=== PATIENT | female | born 1995 | race Caucasian/White ===

== ENCOUNTER 2017-12-29 11:23 | Outpatient (CLI) | payer OTHER, SELFPAY ==
[2017-12-29 11:46] VITALS: BMI 33.1
[2017-12-29 12:13] LABS: ROM Internal Control Test YES-OK TO RESULT pt. (Internal QC); ROM Patient Test Negative (Negative)
--- NOTE | 2017-12-30 07:00 | OB.TRI.NOTE ---
History of Present Illness Date of Service: 12/29/17 Was patient seen by the physician?: No Reason For Visit: RULE OUT LABOR Date of Service: 12/29/17 Final VLADIMIR: 01/13/18 Final VLADIMIR Source: US <20 weeks Gestational age: 38 Weeks and 0 Days History of Present Illness: C/O possible SROM. Home Medications Medication Instructions Recorded Vits [Prenatabs FA] 1 tablet PO DAILY 12/29/17 Allergies No Known Allergies Allergy (Verified 12/29/17 11:47) Physical Exam General: Alert, Oriented x3, Cooperative, No apparent distress Cardiovascular: Regular rate, Regular Rhythm Lungs: Clear to auscultation, Normal air movement Abdomen: Soft, Non Tender, Non-Distended, Gravid, Appropriate for Gestational Age Extremities:: No edema Estimated gestational size: Appropriate for gestational size Presentation: Cephalic Cervix Dilation (cm): 2 Station: -3 Effacement (%): 0 NST - FHR Rate Baby A Baseline: 150s Variability:: Moderate Accelerations:: 15 x 15 Decelerations:: None NST Reactive:: Yes, Appropriate for gestational age FHR Category:: Category I Uterine Activity:: Rare contraction Impression/Plan ROM+ testing negative. Reassuring FHR tracing. Not in active labor.
== END 2017-12-29 12:45 | disposition home or self-care (01) ==
LOC: WPOUT 11:31 → WP 11:33
PROVIDERS: Visit Provider Obstetrics & Gynecology
DX: Z34.93 Encounter for supervision of normal pregnancy, unspecified, third trimester (principal); Z3A.38 38 weeks gestation of pregnancy
CPT/HCPCS: 59025; 59050; 84112; 99218; G0378

== ENCOUNTER 2018-01-05 20:25 | Outpatient (CLI) | payer OTHER, SELFPAY ==
[2018-01-05 20:56] VITALS: BMI 34.2
[2018-01-05 21:48] LABS: ROM Internal Control Test YES-OK TO RESULT pt. (Internal QC); ROM Patient Test Negative (Negative)
--- NOTE | 2018-01-06 08:32 | OB.TRI.HP_ITS ---
History of Present Illness Date of Service: 01/05/18 Was patient seen by the physician?: Yes Reason For Visit: R/O LABOR Date of Service: 01/05/18 Final VLADIMIR: 01/12/18 Gestational age: 39 Weeks and 0 Days History of Present Illness: 22 yo female presents with irreg UCs since AM date of her presentation. Also concerned due to wt gain and intermittent KEYES. Re cramping: did have intercourse night prior to visit . LIves in [place] and hoping for induction. C/O possible ROM at 0945 am also. 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 Home Medications Medication Instructions Recorded Vits [Prenatabs FA] 1 tablet PO DAILY 12/29/17 Allergies No Known Allergies Allergy (Verified 12/29/17 11:47) Physical Exam Vitals: 134/85, 122/75, 128/77, 130/73 General: Alert, Oriented x3, Cooperative, No apparent distress Abdomen: Soft, Gravid NST - FHR Rate Baby A Baseline: 120-130s with accels to 160s- 170s Variability:: Moderate Accelerations:: 15 x 15 Decelerations:: None NST Reactive:: Yes, Appropriate for gestational age FHR Category:: Category I Uterine Activity:: Irritability, with irregular UCs. Impression/Plan 39 wk female. Reactive NST False labor BP wnl No reason to induce and advised induction by 41 wk if primip. Keep ofc appt as scheduled with Dr. Turner for further discussion of all Return to hospital if inc s/sx of labor.
== END 2018-01-05 23:10 | disposition home or self-care (01) ==
LOC: WPOUT 20:43 → WP 01-07 11:05
PROVIDERS: Visit Provider Obstetrics & Gynecology
DX: O47.1 False labor at or after 37 completed weeks of gestation (principal); Z3A.39 39 weeks gestation of pregnancy
CPT/HCPCS: 59025; 59050; 84112; 99218; G0378

== ENCOUNTER 2018-01-09 00:30 | Inpatient (IN) | payer OTHER, MEDICAID, SELFPAY ==
[2018-01-09] MEDS: Lactated Ringers 1,000 ML 50 ML IV ×3 (01:00→06:52)
[2018-01-09 01:13] VITALS: BMI 33.7
[2018-01-09 01:28] LABS: Hematocrit 35.3 % (37-47); Hemoglobin 11.6 g/dl (12.0-15.0); Mean Corp Hgb Conc 32.9 g/gl (32-36); Mean Corpuscular Hgb 27.6 pg (27.0-32.0); Mean Platelet Vol. 10.7 fl (6.2-12.0); Platelet Count 239 K/mm3 (150-450); RBC Distribution Width CV 15.3 % (11.6-14.6); RBC Distribution Width SD 46.6 fl (35.1-43.9); White Blood Count 12.2 K/mm3 (4.4-11.0)
[2018-01-09 01:30] LABS: Scan Indicated on CBC? Y/N NO
[2018-01-09] MEDS: fentaNYL-bupivacaine (epidural) 100 ML BAG EPIDURAL ×3 (02:43→11:34)
[2018-01-09] MEDS: Oxytocin 30 units/NS 500 ml 30 UNITS/500 ML IV.SOLN IV (08:00)
[2018-01-09] MEDS: Oxytocin 30 units/NS 500 ml 30 UNITS/500 ML IV.SOLN 334 UNITS IV (15:00)
--- NOTE | 2018-01-09 15:14 | PCM.OB.VAG ---
Vaginal Delivery Maternal Presentation: Active Labor, Spontaneous Rupture of Membranes Amniotic Membrane Rupture Type: Spontaneous at home Amniotic Fluid Description: Clear Final VLADIMIR: 01/13/18 Final VLADIMIR Source: US <20 weeks Gestational age: 39 Weeks and 3 Days Date of Procedure: 01/09/18 Pre-Operative Diagnosis: IUP Post-Operative Diagnosis: IUP Surgery/ Procedure Performed: Spontaneous Vaginal Delivery Type of Anesthesia: Epidural Description of Procedure: Spontaneous vaginal delivery of a viable female with Apgars of 8/9 with a three-vessel cord which was normal and cord around the neck ?1 loose; first-degree episiotomy. No laceration. Repaired with 3-0 Rapide suture under epidural. Sponge counts okay. Delivery physician: Juan M Turner MD. Presentation: Vertex Placental Delivery Description: Spontaneous Placenta Disposition: [facility] Cord Vessel Description: 3 Vessels Cord Entanglement: Around neck x 1, loose Estimated Blood Loss: 250 cc A gender: Female (1 minute): 8 (5 minute): 9 Episiotomy Description: Midline, 1st degree Laceration: None Medications given after delivery: IV Pitocin, IM Methergin Complications: None
--- NOTE | 2018-01-09 15:17 | OP.PCM_ITS ---
Vaginal Delivery Maternal Presentation: Active Labor, Spontaneous Rupture of Membranes Amniotic Membrane Rupture Type: Spontaneous at home Amniotic Fluid Description: Clear Final VLADIMIR: 01/13/18 Final VLADIMIR Source: US <20 weeks Gestational age: 39 Weeks and 3 Days Date of Procedure: 01/09/18 Pre-Operative Diagnosis: IUP Post-Operative Diagnosis: IUP Surgery/ Procedure Performed: Spontaneous Vaginal Delivery Type of Anesthesia: Epidural Description of Procedure: Spontaneous vaginal delivery of a viable female with Apgars of 8/9 with a three-vessel cord which was normal and cord around the neck ?1 loose; first- degree episiotomy. No laceration. Repaired with 3-0 Rapide suture under epidural. Sponge counts okay. Delivery physician: Juan M Turner MD. Presentation: Vertex Placental Delivery Description: Spontaneous Placenta Disposition: [facility] Cord Vessel Description: 3 Vessels Cord Entanglement: Around neck x 1, loose Estimated Blood Loss: 250 cc Infant A gender: Female (1 minute): 8 (5 minute): 9 Episiotomy Description: Midline, 1st degree Laceration: None Medications given after delivery: IV Pitocin, IM Methergin Complications: None
--- NOTE | 2018-01-09 15:17 | PCM.DCVAG ---
Discharge Diet: No Restrictions Discharge Activity: May Shower, May Take a Tub Bath May resume sexual activity in: 4-6 weeks Additional Activity Instructions:: Nothing in the vagina for 4-6 weeks. You may return to work/school in 6 weeks. Call your doctor if you observe: Fever of 101 or Higher, Inability to urinate, Inability to have a bowel movement, Using more than one pad per hour Additional Instructions: If you experience any of the following, contact your healthcare provider. Bleeding that soaks a pad every hour for 2 hours Unrelieved incision or abdominal pain Swelling, redness, discharge or bleeding from your incision or episiotomy site Your incision begins to separate Problems urinating (including inability to urinate or burning while urinating). Visual changes Severe headache Flu-like symptoms Pain or redness in one of both of your breasts Pain, warmth, tenderness or swelling in your legs, especially the calf area Frequent nausea and vomiting Symptoms of depression or anxiety If you experience any of the following, call 911 or go to the nearest Emergency Room. Chest pain Problems breathing Seizure activity Partial or complete paralysis of a body part, slurred speech, weakness or drooping of the face, or a sudden inability to walk or hold your balance Allergies/Adverse Reactions: Allergies No Known Allergies Allergy (Verified 01/09/18 01:11) Medications to take at Discharge Vits [Prenatabs FA] 1 tablet PO DAILY 12/29/17 Please Follow Up With: Juan M Turner MD - [phone] When: Call to make an appointment with your doctor in 6 weeks.
--- NOTE | 2018-01-09 15:18 | DCINST_ITS ---
Discharge Diet: No Restrictions Discharge Activity: May Shower, May Take a Tub Bath May resume sexual activity in: 4-6 weeks Additional Activity Instructions:: Nothing in the vagina for 4-6 weeks. You may return to work/school in 6 weeks. Call your doctor if you observe: Fever of 101 or Higher, Inability to urinate, Inability to have a bowel movement, Using more than one pad per hour Additional Instructions: If you experience any of the following, contact your healthcare provider. * Bleeding that soaks a pad every hour for 2 hours * Unrelieved incision or abdominal pain * Swelling, redness, discharge or bleeding from your incision or episiotomy site * Your incision begins to separate * Problems urinating (including inability to urinate or burning while urinating) . * Visual changes * Severe headache * Flu-like symptoms * Pain or redness in one of both of your breasts * Pain, warmth, tenderness or swelling in your legs, especially the calf area * Frequent nausea and vomiting * Symptoms of depression or anxiety If you experience any of the following, call 911 or go to the nearest Emergency Room. * Chest pain * Problems breathing * Seizure activity * Partial or complete paralysis of a body part, slurred speech, weakness or drooping of the face, or a sudden inability to walk or hold your balance Allergies/Adverse Reactions: Allergies No Known Allergies Allergy (Verified 01/09/18 01:11) Medications to take at Discharge Vits [Prenatabs FA] 1 tablet PO DAILY 12/29/17 Please Follow Up With: Juan M Turner MD - [phone] When: Call to make an appointment with your doctor in 6 weeks.
[2018-01-09] MEDS: Oxytocin 30 units/NS 500 ml 30 UNITS/500 ML IV.SOLN 167 UNITS IV (15:30)
[2018-01-09 19:40] VITALS: BP 130/90; PULSE 98; RESP 16; TEMP 37.3
[2018-01-09 21:07] VITALS: BP 139/73
[2018-01-09] MEDS: Ibuprofen 600 MG Tablet PO (21:13)
[2018-01-09 23:41] VITALS: BP 131/79; PULSE 92; RESP 16; TEMP 36.6
[2018-01-10 03:55] VITALS: BP 116/80; PULSE 98; RESP 18; TEMP 36.9
--- NOTE | 2018-01-10 04:36 | NURSING ---
0200 pt states she passed a couple of clots when up to bathroom states they were less than a egg size but larger than a quarter instructed to call if passed more, fundus firm. 0400 pt states no further clots noted.
[2018-01-10] MEDS: oxyCODONE 5 MG Tablet PO (06:16)
[2018-01-10 08:21] VITALS: BP 119/75; PULSE 87; RESP 16; TEMP 36.7; O2SAT 96
--- NOTE | 2018-01-10 11:00 | PCM.PN.OB ---
Subjective: Patient without complaints. Breast-feeding going well. Minimal vaginal bleeding noted. - Physical Exam Vital Signs AF, VSS Temp Pulse Resp BP Pulse Ox 98.1 F 87 16 119/75 96 01/10/18 08:21 01/10/18 08:21 01/10/18 08:21 01/10/18 08:21 01/10/18 08:21 Oxygen Delivery Method Room Air Weight: 215 lb 9.793 oz Body Mass Index (BMI) 33.7 Intake and Output for Last 24 Hours 01/08/18 01/09/18 01/10/18 23:59 23:59 23:59 Intake Total 4731 / 4731 Output Total 1999 Balance 2731 / 2731 Laboratory Tests Past 24 Hrs 01/09/18 16:15 Screen NEGATIVE Baby's Blood Type A POSITIVE Baby's KAMRAN NEGATIVE Medical Necessity - Tobacco Use Smoking Status: Never smoker Assessment/Plan Doing well. Continuing present care.
[2018-01-10 11:09] VITALS: BP 110/68; PULSE 98; RESP 18; O2SAT 97
[2018-01-10] MEDS: Ibuprofen 600 MG Tablet PO (17:11)
[2018-01-10 17:12] VITALS: BP 141/86; PULSE 98; RESP 18; O2SAT 96
== END 2018-01-10 19:45 | disposition home or self-care (01) | DRG 775 ==
PROVIDERS: Admitting Provider Obstetrics & Gynecology; Visit Provider Obstetrics & Gynecology
DX: O69.81X0 Labor and delivery complicated by cord around neck, without compression, not applicable or unspecified (principal); Z37.0 Single live birth; Z3A.39 39 weeks gestation of pregnancy
CPT/HCPCS: 59050; 85027; 85461; 86850; 86900; 90384; 99218; J7120; G0378; J2790

== ENCOUNTER → 2019-10-08 17:27 | Outpatient (CLI) | payer OTHER, SELFPAY ==
[2019-10-08 21:10] LABS: Chlamydia Trachomatis by PCR Negative (Negative); Neisserai gonorrhoeae by PCR Negative (Negative); Probe Check PASS; Sample Adequacy Control PASS; Specimen Processing Control PASS
== END ==
PROVIDERS: Referring Provider Obstetrics & Gynecology; Visit Provider Obstetrics & Gynecology
DX: Z11.3 Encounter for screening for infections with a predominantly sexual mode of transmission (principal); Z12.4 Encounter for screening for malignant neoplasm of cervix
CPT/HCPCS: 87491; 87591; 88175; G0145

== ENCOUNTER → 2019-10-28 09:57 | Outpatient (CLI) | payer OTHER, SELFPAY ==
[2019-10-28 13:51] LABS: Color, Urine Yellow (Yellow); Glucose, Dipstick Normal (Normal); Ketone-Dipstick Negative (Negative); Leukocyte Esterase-Dipstick 100 /ul (Negative); Nitrite-Dipstick Negative (Negative); Occult Blood-Urine Negative /ul (Negative); Protein-Dipstick Negative (Negative); Urine Bilirubin Dipstick Negative (Negative); Urine Clarity Sl. Cloudy (Clear); Urine Urobilinogen Normal (Normal)
[2019-10-28 14:00] LABS: Amphetamine Urine VISTA NEGATIVE (<1000 ng/mL); Barbiturate Urine VISTA NEGATIVE (< 200 ng/mL); Benzodiazepine Urine VISTA NEGATIVE (< 200 ng/mL); Cocaine Urine VISTA NEGATIVE (< 300 ng/mL); Ecstacy Urine VISTA NEGATIVE (< 500 ng/mL); Methadone Urine VISTA NEGATIVE (< 300 ng/mL); PCP Urine VISTA NEGATIVE (< 25 ng/mL); THC Urine VISTA NEGATIVE (< 50 ng/mL); Vista UDS pH Range 8
[2019-10-28 14:05] LABS: Absolute Lymphocyte Count 2.39 X10^3/uL (0.83-4.51); Absolute Neutrophil Count 6.8 X10^3/uL (2.0-7.7); Basophil# 0.06 X10^3/uL; Basophil% 0.6 % (0-1); Eosinophil# 0.23 X10^3/uL; Eosinophils% 2.3 % (0-5); Hematocrit 40.8 % (37-47); Hemoglobin 13.6 g/dL (12.0-15.0); Lymphocyte # 2.39 X10^3/ul (4.0); Lymphocyte % 23.6 % (19-41); Mean Corp Hgb Conc 33.3 g/dL (32-36); Mean Corpuscular Hgb 27.6 pg (27.0-32.0); Mean Corpuscular Volume 82.9 fL (81-99); Mean Platelet Vol. 10.6 fl (6.2-12.0); Monocyte# 0.61 X10^3/uL; NRBC Flagged by Analyzer 0 % (0-5); Neutrophil % 67.3 % (47-70); Platelet Count 277 K/mm3 (150-450); RBC Distribution Width CV 14.2 % (11.6-14.6); RBC Distribution Width SD 42.9 fl (35.1-43.9); Red Blood Count 4.92 M/mm3 (4.2-5.4); White Blood Count 10.1 K/mm3 (4.4-11.0)
[2019-10-28 14:17] LABS: Thyroid Stim Hormone (TSH) 0.55 uIU/mL (0.358-3.74)
[2019-10-29 02:39] LABS: Prenatal RPR NONREACTIVE (NONREACTIVE)
[2019-10-29 10:13] LABS: HIV - WCH Non-Reactive (Nonreactive); Hepatitis B Surface Antigen Non-Reactive (Nonreactive); Hepatitis C Antibody Non-Reactive (Nonreactive); Rubella IgG 36.2 IU/mL
== END ==
LOC: WOBLAB 09:59
PROVIDERS: Visit Provider Obstetrics & Gynecology
DX: Z34.81 Encounter for supervision of other normal pregnancy, first trimester (principal)
CPT/HCPCS: 36415; 80307; 81002; 84443; 85025; 86703; 86762; 86803; 87340

== ENCOUNTER → 2020-03-10 | Outpatient (CLI) | payer OTHER, SELFPAY ==
[2020-03-10 18:43] LABS: Hematocrit 34.1 % (37-47); Hemoglobin 10.9 g/dL (12.0-15.0); Mean Corpuscular Hgb 27.5 pg (27.0-32.0); Mean Corpuscular Volume 86.1 fL (81-99); Mean Platelet Vol. 10.4 fl (6.2-12.0); Platelet Count 229 K/mm3 (150-450); RBC Distribution Width CV 14.6 % (11.6-14.6); RBC Distribution Width SD 44.8 fl (35.1-43.9); Red Blood Count 3.96 M/mm3 (4.2-5.4); White Blood Count 9.8 K/mm3 (4.4-11.0)
[2020-03-10 18:46] LABS: Glucose Challenge Gest 1H 50g 99 mg/dL (70-140)
== END | disposition home or self-care (01) ==
PROVIDERS: Referring Provider Obstetrics & Gynecology; Visit Provider Obstetrics & Gynecology
DX: Z34.82 Encounter for supervision of other normal pregnancy, second trimester (principal)
CPT/HCPCS: 82950; 85027; 86850

== ENCOUNTER → 2020-05-11 16:47 | Outpatient (CLI) | payer OTHER, SELFPAY | PROVIDERS: Visit Provider Obstetrics & Gynecology | DX: Z36.85 Encounter for antenatal screening for Streptococcus B (principal) | CPT/HCPCS: 87081 ==

== ENCOUNTER 2020-06-01 06:55 | Inpatient (IN) | payer OTHER, SELFPAY ==
[2020-06-01] VITALS (45 sets, daily range): BP systolic 109–140; BP diastolic 52–88; PULSE 67–101; RESP 16; TEMP 36.9–37.4; O2SAT 97–100; BMI 36.8
[2020-06-01] MEDS: Lactated Ringers 1,000 ML 50 ML IV (07:30)
[2020-06-01 07:46] LABS: Absolute Lymphocyte Count 2.77 X10^3/uL (0.83-4.51); Absolute Neutrophil Count 6.2 X10^3/uL (2.0-7.7); Basophil# 0.03 X10^3/uL; Basophil% 0.3 % (0-1); Eosinophil# 0.17 X10^3/uL; Eosinophils% 1.7 % (0-5); Hemoglobin 10.9 g/dL (12.0-15.0); Lymphocyte # 2.77 X10^3/ul (4.0); Mean Corp Hgb Conc 32.1 g/dL (32-36); Mean Corpuscular Hgb 25.4 pg (27.0-32.0); Mean Corpuscular Volume 79.3 fL (81-99); Mean Platelet Vol. 10.9 fl (6.2-12.0); Monocyte# 0.62 X10^3/uL; Monocyte% 6.3 % (0-10); NRBC Flagged by Analyzer 0 % (0-5); Neutrophil # 6.22 X10^3/uL (2.7-7.7); Neutrophil % 62.9 % (47-70); Platelet Count 247 K/mm3 (150-450); RBC Distribution Width CV 16.7 % (11.6-14.6); RBC Distribution Width SD 47.3 fl (35.1-43.9); Red Blood Count 4.29 M/mm3 (4.2-5.4); White Blood Count 9.9 K/mm3 (4.4-11.0)
[2020-06-01] MEDS: Oxytocin 30 units/NS 500 ml 30 UNITS/500 ML IV.SOLN IV (07:55)
--- NOTE | 2020-06-01 08:45 | HP.PCM_ITS ---
History and Physical Date of Admission: 06/01/20 [facility] [place] - H[place]ORY AND PHYSICAL (06/01/2020) Name: TOO FARFAN History of This this is a 25-year-old G3, P1 Ab1 who presents for induction. care has been uneventful. OB Physician: DANYEL 's Physician: [facility] ...................................................................... : 1995 Age: 25 Address: [address] [place] [address] Phone: H) [phone] Insurance Carrier: NOE [id number] Emergency Contact: ARLETH MORENO [phone] ...................................................................... Final VLADIMIR: 06/01/20 By Ultrasound: 9 weeks 0 days PARITY: (G-Total Pregnancies P-Fullterm,Premature,Induced AB,Spont AB, Ectopics, Multiple,Living) VLADIMIR CONFIRMATION: By LMP: 08/26/19 Final VLADIMIR: 06/01/20 OB PROBLEM LIST: Declines AFP and CF tests. Her brother has Down's Syndrome Watch for PPD. Had some, not treated w first baby. O negative RhoGAM at 28-29 wks ALLERGIES: No Known Allergies MEDICATIONS: 28 mg iron-800 mcg tablet One pill by mouth once a day SOCIAL HISTORY: Smoking - Never Alcohol Use - socially not while Diet - balanced Diet, caffeine < 2 drinks per day and water intake 50-60 oz daily. 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 Illicit Drug Use - denies use of street drugs Sexual Activity - multiple sexual partners Residence - Lives w/FOB Arsenio Farfan Place of - [place] Hours Worked - 40 hours per week Spouse-Sig Other Name - Arsenio Farfan Spouse-Sig Other Occupation - Economic Specialist @ [employer] Spouse-Sig Other Phone No - [phone] Children Name(s) - Maximo '18 PRIOR DELIVERY HISTORY DEL DATE GEST LAB WT LB WT OZ TYPE ANES LABOR TX 23 Ritesh 17 7 0 0 0 Vag None No 26 Apr 18 39 15 7 12 Vag Epidural No ANTEPARTUM FLOW CHART VISIT GE RTC FU F F CT U U DATE WK MD WKS HT PN HR M SS BP ED WT CT GL D EF ST __ ____ ___ __ __ ___ __ __ __ ___ __ __ __ ___ __ 15 Sep 39 JMW 6 38 V + + 134/84 sl 229 tr - 3 75 -2 08 May JMW 1 38 V + + 116/78 tr 232 - - S May JMW 1 37 V + + 116/72 sl 233 - - S Apr nurs de 140/72 232 ne ne Apr JMW 1 37 V + + 122/70 sl 232 - - 2 50 -2 18 Apr JMW 1 36 + + 130/72 sl 229 - - 30 Mar JMW 3 33 + + 110/78 0 226 - - 09 Apr 14 JMW 3 30 + + 116/80 0 228 tr - Mar 13 JMW 3 28 + + 120/96 0 224 - - February 05 JMW 4 + O / 0 Jan 02 SHM 4 19 + + 120/72 0 216 tr - Nov 26 JMW 4 13 + ? 118/78 0 214 - - Oct 25 JMW 4 + US 114/68 0 213 tr - ANTEPARTUM NOTE(S): May 31 2020: Ctxs-occas, Induction Forms Signed May 24 2020: Ctxs-occas, Feeling Well May 17 2020: Ctxs-occas, Good FM,Low Backache May 13 2020: see note May 11 2020: GBS Today,LARC form signed,Occ Ctxs May 03 2020: Headache Better,Good FM Apr 14 2020: no complaints, Doing Well Mar 24 2020: feeling well., Good FM Mar 10 2020: see note Feb 04 2020: Facetime: doing well; 10 minutes Jan 05 2020: Comp u/s today Nov 25 2019: Nausea & Fatigue Better, Oct 28 2020: Daily Nausea, Sono, NOB and PNV Today COMPREHENSIVE ANTEPARTUM NOTE(S): May 31 2020: Scheduled for Induction for 06/01 at 0700, spoke with Arely MALIK. Questions answered and consents signed. [place] May 29 2020: Call Msg from 5 PM this evening. Pt of Dr. Turner. Too calling @ 39 wks 4 days reporting onset of headache back of her head within the past hour, hands are more swollen, no swelling in feet or face. Denies visual disturbances. BP 152/91 and 154/96 prior to this call. She has an appt in [place] on for PNV and to sign induction papers for later this week. She has not had much to drink today. For now, take 1000 mg Tylenol, drink a glass of water every half hour and will call her back in 2 hrs to check on her. Msg to Rosalinda. When I called Too back, headache is not gone, but much improved. BP 130/80. Advised if BP > 140/90, would need to go in to OB tonight. She is agreeable. May 25 2020: Too calling @ 39 wks 0 days with concern of low back pain and increased vaginal pressure. back pain varies in intensity, but nothing timeable. She has been up since 5 AM, good FM, no spotting, no leaking fluid, no abdominal discomfort. 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 Offered for her to go home, but she declines. Has Tylenol 500 mg tabs in her desk -- advised take 2 now with a full glass of water and can take 2 every 6 hrs if needed for discomfort. Rest at home. These Sx are to be expected as she nears term. To call back if Sx change. May 13 2020: Too was added on today for concerns of decrease FM. States has notice decrease in movement over the past several days and called office this morning. However she did notice more FM this morning than previous days. Urine neg and neg. No other concerns at this time. NST monitor applied for FM. Ice water given. Strong FHR noted. NST is reactive and read by Dr. Edgar Izquierdo. Repeat BP was 130/78. LSS May 13 2020: NST reactive today. F/u routine or sooner if needed. If decreased FM pt to call again, if needed over weekend for NST/montioring. CM May 03 2020: Too presents here today for PNV and reports that her headache is much better and denies ever having blurry vision. Admits her fingers were swollen this morning, but better this afternoon. Slight edema noted in bilateral ankles/feet. Good FM. [place] Apr 14 2020: Too is here for a PNV. Good FM. No edema noticed. No complaints or concerns expressed. Informed pt of GBS and LARC at 36 week visit. MK Mar 10 2020: Too is being seen for PNV. Glucola and Rhogam done today. Repeat BP left side lying 108/60. AM Jan 06 2020: Too is here for comp u/s, PNV/. She reports having issues with h/a's. Dr Turner prescribed Fioricet that she has not used yet. Discussed allergies and may use OTC Zyrtec, Claritin, or Flonase. LMT Jan 06 2020: US today AGA, EFW >90th%, CL 38mm by TAUS. ANTERIOR placenta. MALE. Glucola info given for 28wga. Candidate for telehealth at 24wga. Pt to use mother's BP cuff, mom is nurse and plans to purchase Doppler. Oct 28 2019: Too and Rodriguez are here for NOB nurse visit following US with VLADIMIR 06-01-20 planning a vag del at [facility] w epidural, using [facility] and is undecided re feeding method. She initiated with first baby but it did not go well. Office Class suggested. Info given. Too is a G 3 P 1 who works FT at [employer] in [employer] [facility] [employer]. 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 The was planned and is welcomed. Their daughter at home will be two in December. Too has NKA to meds, latex or the environment. She does have allergies to dust and some animal hair. She is a lifetime non smoker, drinks alcohol socially but not in pg, denies past or present street drug use. Too's diet is balanced w minimal coffee or tea and about 40-50+ oz of water q day. Suggested increasing to closer to one gal daily jarred as weather is warmer. The importance of protein in her diet discussed. They walk in nice weather but not otherwise. DVD for yoga in pg suggested. Genetics Screening form completed noting her brother has Down's Syndrome. They decline AFP and CF tests. They are interested in [employer] Early Gender DNA Test and info given. Warning signs in pg reviewed as well as wearing her seatbelt low on her abdomen, OTC meds ok to take, reaching the office after hours and lifting restriction of 20-25# with understanding voiced. Routine labs drawn today. They have no cats but she is aware of litter box issues. She's had chicken pox. Other medical issues include GERD ( with surgical procedure) , mild anxiety and depression without treatment. She feels she had some PPD with first baby without treatment. Advised if aware to call office . They have a copy of What to Expect. Enc to call w any concerns. Visit lasted [address] VILLALOBOS after labs. Cyn MALIK. NEW Oct 08 2019: Too presents here today for Missed Menses appointment. 24 y.o. G 3 P 1 non-smoker with history of regular menses with LMP of 12-19 lasting her average of 5-6 days. UPT is positive today in our Office. Presents here at 6 weeks 1 day with an approximate VLADIMIR of 06-03-20. Plans at [facility] as last was in 2018. Denies spotting/bleeding thus far in with brief review of danger signs and bleeding in . Currently taking an OTC Vitamin, with Educational Materials given. Medication and Allergy lists up-dated. [place] Oct 08 2019: ok REVIEW OF SYSTEMS: GENERAL - Denies fever, or chills SKIN - Denies rash, new skin lesions, or change in moles EYES - Denies blurred vision, or change in visual acuity EARS - Denies ear pain, or difficulty hearing NOSE - Denies nasal congestion, discharge, or bleeding MOUTH - Denies sore throat, or difficulty swallowing NECK - Denies pain or swelling RESPIRATORY - Denies shortness of breath, cough, wheezing CARDIOVASCULAR - Denies palpitations, chest pain, orthopnea, PND, peripheral edema, syncope or claudication GASTROINTESTINAL - Denies nausea, vomiting, diarrhea, constipation, Denies abdominal pain, melena and or bright red blood GENITOURINARY - Denies dysuria, frequency of urination, urgency, or hesitancy MUSCULOSKELETAL - Denies joint or muscle pain, or back pain NEUROLOGICAL - Denies localized numbness, weakness, or tingling PSYCHIATRIC - Denies depression, anxiety, substance abuse or suicide attempts ENDOCRINE - Denies heat or cold intolerance, weight loss or gain, increasing thirst HEMATO-IMMUNOLOGIC - Denies easy bruising, bleeding, oral ulcerations or recurrent infections GENETICS SCREENING: Age 35+ years: No Thalassemia: No Neural Tube Defect: No Down Syndrome: Yes Pt's Brother MCIHELLE-SACHS: No Sickle Cell Disease: No Hemophilia: No Musc. Dystrophy: No Cystic Fibrosis: No-declines screening Grimes Chorea: No Mental Retardation: No Fragile X: No Other genetic: No Other defects: No SABs/still births: Yes x1 Drugs since LMP: No INFECTION HISTORY: High risk AIDS: No High risk Hepatitis: No Exposed to TB: No Exposed to Herpes: No Rash/viral illness since LMP: No History of STD: No MENSTRUAL HISTORY: *Menses Amount/Duration: 5 daysMenses Regularity: RegularMenarche (Age Onset): 14* PAST SUMMARY: PARITY: 1. Total Pregnancies............ 3 2. Full Term Pregnancies........ 1 3. Premature.................... 0 4. Abortions - Induced.......... 0 5. Abortions - Spontaneous...... 1 6. Ectopics..................... 0 7. Multiple Births.............. 0 8. Living Children.............. 1 PAST #1: Date of :.................. 04/07/17 Gestation Weeks:................ 7 Length of labor(hours):......... 0 Sex:............................ Weight-lbs:............... 0 Weight-oz:................ 0 Type of Delivery:............... Vag Type of Anesthesia:............. None Place of Delivery:.............. HOME Treatment of Labor?:.... No Comment: PAST #2: Date of :.................. 01/09/18 Gestation Weeks:................ 39 Length of labor(hours):......... 15 Sex:............................ F Weight-lbs:............... 7 Weight-oz:................ 12 Type of Delivery:............... Vag Type of Anesthesia:............. Epidural Place of Delivery:.............. [facility] Treatment of Labor?:.... No Comment: PPD PHYSICAL EXAMINATION General Appearence: 25 yo female in no acute distress Vital Signs: AF, VSS Heart: RRR without rubs or gallops Lungs: CTA x 2 Breasts: deferred Abdomen: gravid Pelvis: Cervix: 4/70 AROM clear Presentation: cephalic Station: -2 Fetus: Size: AGA Movement: present Heart: present Labs for : TOO FARFAN since 09/05/2019 ORDER DATEIN DESCRIPTION VALUE UNITS RANGE A+ COMMENT CBC W/DIFF, AUTOMATED 06/01/20 NOTE Original Ordering Provider: Devante Turner WBC 9.9 K/mm3 4.4-11.0 RBC 4.29 M/mm3 4.2-5.4 HGB 10.9 g/dL 12.0-15.0 L HCT 34.0 % 37-47 L MCV 79.3 fL 81-99 L MCH 25.4 pg 27.0-32.0 L MCHC 32.1 g/dL 32-36 RDW CV 16.7 % 11.6-14.6 H RDW SD 47.3r fl 35.1-43.9 H PLT 247 K/mm3 150-450 MPV 10.9 fl 6.2-12.0 NEUT% 62.9 % 47-70 LY% 28.0 % 19-41 MONO% 6.3 % 0-10 EO% 1.7 % 0-5 BASO% 0.3 % 0-1 IM GRAN % 0.800 % 0.0-0.9 IG% - Immature Granulocytes (promyelocytes, myelocytes and metamyelocytes) > 1% indicates that a LEFT SHIFT is Present. ABSOLUTE NEUT 6.2 X10 3/uL 2.0-7.7 ABSOLUTE LYMPH 2.77 X10 3/uL 0.83-4.51 NRBC, FLAGGED 0 % 0-5 CULTURE, GROUP B STREPTOCOCCUS 05/11/20 NOTEw Original Ordering Provider: Devante Turner MARISOL Culture Group B Beta Streptococcus is not isolated. Reviewed by DEVANTE ANTIBODY SCREEN 03/10/20 [facility]~[address] [place], [address]~ ANTIBODY SCREEN NEGATIVE N Reviewed by DEVANTE GLUCOSE CHALLENGE GEST 1H 50G 03/10/20 NOTE Original Ordering Provider: Devante Turner GLU GEST 50G 1H 99 mg/dL 70-140 Reviewed by DEVANTE CBC-COMPLETE BLOOD CNT NO DIFF 03/10/20 NOTE Original Ordering Provider: Devante Turner WBC 9.8 K/mm3 4.4-11.0 RBC 3.96 M/mm3 4.2-5.4 L HGB 10.9 g/dL 12.0-15.0 L HCT 34.1 % 37-47 L MCV 86.1 fL 81-99 MCH 27.5 pg 27.0-32.0 MCHC 32.0 g/dL 32-36 RDW CV 14.6 % 11.6-14.6 RDW SD 44.8 fl 35.1-43.9 H PLT 229 K/mm3 150-450 MPV 10.4 fl 6.2-12.0 Reviewed by DEVANTE HEPATITIS C ANTIBODY 10/28/19 NOTE Original Ordering Provider: Devante Turner HEPATITIS C AB Non-Reactive Nonreactive Non Reactive: < 0.8 Equivocal: >/= 0.8 to < 1.0 Reactive: >/= 1.0 The CDC recommends that a reactive/equivocal HCV antibody result be followed up by the HCV Nucleic Acid Amplification test (151129) Reviewed by DEVANTE calix HEPATITIS B SURFACE ANTIGEN 10/28/19 NOTE Original Ordering Provider: Devante Turner HEPB SURFACE AG Non-Reactive Nonreactive Reviewed by DEVANTE HIV - H 10/28/19 NOTE Original Ordering Provider: Devante Turner HIV - [facility] Non-Reactive Nonreactive Reviewed by DEVANTE calix RUBELLA IGG 10/28/19 NOTE Original Ordering Provider: Devante Turner RUBELLA IGG 36.2 IU/mL Antibody results Interpretation of Immune Status < 5 IU/ml Presumed Non-immune 5 - < 10 IU/ml Equivocal > or = 10 IU/ml Presumed Immune Reviewed by DEVANTE RPR 10/28/19 NOTE Original Ordering Provider: Devante Turner RPR NONREACTIVE NONREACTIVE Reviewed by DEVANTE T AND S-NO CHARGE W/PNP 10/28/19 Reason for Type AND Screen/Red Cells: Surgery? N [facility]~[address] [place], [address]~ BLOOD TYPE GEL O NEGATIVE N AB SCREEN GEL NEGATIVE w N Reviewed by DEVANTE THYROID STIM HORMONE (TSH) 10/28/19 NOTE Original Ordering Provider: Devante Turner TSH 0.55 uIU/mL 0.358-3.74 Reviewed by DEVANTE CBC W/DIFF, AUTOMATED 10/28/19 NOTE Original Ordering Provider: Devante Turner WBC 10.1 K/mm3 4.4-11.0 RBC 4.92 M/mm3 4.2-5.4 HGB 13.6 g/dL 12.0-15.0 HCT 40.8 % 37-47 MCV 82.9 fL 81-99 MCH 27.6 pg 27.0-32.0 MCHC 33.3 g/dL 32-36 RDW CV 14.2 % 11.6-14.6 RDW SD 42.9 fl 35.1-43.9 PLT 277 K/mm3 150-450 MPV 10.6 fl 6.2-12.0 NEUT% 67.3 % 47-70 LY% 23.6 % 19-41 MONO% 6.0 % 0-10 EO% 2.3 % 0-5 BASO% 0.6 % 0-1 IM GRAN % 0.200 % 0.0-0.9 IG% - Immature Granulocytes (promyelocytes, myelocytes and metamyelocytes) > 1% indicates that a LEFT SHIFT is Present. ABSOLUTE NEUT 6.8 X10 3/uL 2.0-7.7 ABSOLUTE LYMPH 2.39 X10 3/uL 0.83-4.51 NRBC, FLAGGED 0 % 0-5 Reviewed by DEVANTE URINE DRUG SCREEN (VISTA) 10/28/19 NOTE Original Ordering Provider: Devante Turner TO BE CONFIRMED CONFIRMATORY TESTING FOR ALL POSITIVE URINE DRUG SCREEN RESULTS WILL ONLY BE SENT OUT UPON PHYSICIAN ORDER. VISTA Urine Drug Screen methods provide only preliminary analytical test results. A more specific alternate chemical method must be used in order to obtain a confirmed analytical result. Gas chromatography/mass spectrometery (GC/MS) is the preferred confirmatory method. Clinical consideration and professional judgement should be applied to any drug of abuse test result, particularly when preliminary positive results are used. URINE TCA TESTING MUST BE ORDERED SEPARATELY. USE TEST MNEMONIC: [facility]IST[facility] UDS PH 8 AMPHETAMINES NEGATIVE <1000 ng/mL w BARBITIURATES NEGATIVE < 200 ng/mL BENZODIAZIPINE NEGATIVE < 200 ng/mL COCAINE NEGATIVE < 300 ng/mL ECSTACY NEGATIVE w < 500 ng/mL METHADONE NEGATIVE < 300 ng/mL OPIATES NEGATIVE < 300 ng/mL PCP NEGATIVE < 25 ng/mL THC NEGATIVE < 50 ng/mL Reviewed by DEVANTE URINALYSIS, ROUTINE (DIPSTICK) 10/28/19 NOTE Original Ordering Provider: Devante Turner COLOR Yellow Yellow CLARITY Sl. Cloudy Clear GLUCOSE, UR Normal mg/dl Normal BILIRUBIN URINE Negative mg/dL Negative KETONE UR Negative mg/dl Negative SP.GR. DIPSTX 1.010 1.002-1.030 w PH UR 8.0 5.0 - 8.0 PROT DIPSTX Negative mg/dl Negative UROBILI Normal mg/dl Normal NITRITE UR Negative Negative w OCCULT BLOOD-UR Negative /ul Negative LEUK ESTERASE 100 /ul Negative H Reviewed by DEVANTE PAP TEST I-G 10/08/19 NOTE Original Ordering Provider: Devante Turner DIAGN . NEGATIVE FOR INTRAEPITHELIAL LESION OR MALIGNANCY. ADEQ . Satisfactory for evaluation. Endocervical and/or squamous metaplastic cells (endocervical component) are present. PERFORM . Daniella Juarez Paid Search Analyst (ASCP) TEST METHOD . This liquid based ThinPrep(R) pap test was screened with the use of an image guided system. Performed at: [facility] [id number] Animal Cruelty Investigation Supervisor: Felicitas Milan MD, Phone: [phone] COMM . . PAPSMR . The Pap smear is a screening test designed to aid in the detection of premalignant and malignant conditions of the uterine cervix. It is not a diagnostic procedure and should not be used as the sole means of detecting cervical cancer. Both false-positive and false-negative reports do occur. Reviewed by DEVANTE HECTOR/ARELY [facility] BY PCR 10/08/19 NOTE Original Ordering Provider: Devante Turner [facility] PCR Negative Negative BY PCR Negative Negative Reviewed by DEVANTE Impression /Plan: 40-week intrauterine for elective induction. Preparations in progress for delivery.
[2020-06-01] MEDS: Lactated Ringers 500 ML 999 ML IV (09:35)
[2020-06-01] MEDS: fentaNYL-bupivacaine (epidural) 100 ML BAG EPIDURAL ×2 (10:19→14:51)
[2020-06-01] MEDS: Lactated Ringers 1,000 ML 200 ML IV (14:15)
[2020-06-01] MEDS: Oxytocin 30 units/NS 500 ml 30 UNITS/500 ML IV.SOLN 334 UNITS IV (16:38)
--- NOTE | 2020-06-01 16:48 | PCM.OPRPT ---
Vaginal Delivery Maternal Presentation: Elective Induction Method of Induction: Pitocin, Amniotomy Amniotic Membrane Rupture Type: Artificial Amniotic Fluid Description: Clear Final VLADIMIR: 06/01/20 Final VLADIMIR Source: US <20 weeks Gestational age: 40 Weeks and 0 Days Date of Procedure: 06/01/20 Pre-Operative Diagnosis: IUP Post-Operative Diagnosis: IUP Surgery/ Procedure Performed: Spontaneous Vaginal Delivery Type of Anesthesia: Epidural Description of Procedure: Spontaneous vaginal delivery of a viable male infant with Apgars of 8/9 from an occiput anterior presentation with clear amniotic fluid and normal three-vessel placenta. No episiotomy or laceration. Sponges okay. Delivery physician: Juan M Turner MD. Presentation: Vertex Placental Delivery Description: Spontaneous Placenta Disposition: [facility] Cord Vessel Description: 3 Vessels Estimated Blood Loss: 250 cc Infant A gender: Male (1 minute): 8 (5 minute): 9 Episiotomy Description: None Laceration: None Medications given after delivery: IV Pitocin Complications: None
--- NOTE | 2020-06-01 16:51 | DCINST_ITS ---
<Juan M Turner - Last Filed: 06/01/20 16:51> Discharge Diet: No Restrictions Discharge Activity: May Shower, May Take a Tub Bath May resume sexual activity in: 4-6 weeks Additional Activity Instructions:: Nothing in the vagina for 4-6 weeks. You may return to work/school in 6 weeks. Call your doctor if you observe: Inability to urinate, Inability to have a bowel movement, Using more than one pad per hour Additional Instructions: If you experience any of the following, contact your healthcare provider. * Bleeding that soaks a pad every hour for 2 hours * Fever 100.4 or higher * Unrelieved incision or abdominal pain * Swelling, redness, discharge or bleeding from your incision or episiotomy site * Your incision begins to separate * Problems urinating (including inability to urinate or burning while urinating). * Visual changes * Severe headache * Flu-like symptoms * Pain or redness in one of both of your breasts * Pain, warmth, tenderness or swelling in your legs, especially the calf area * Frequent nausea and vomiting * Symptoms of depression or anxiety If you experience any of the following, call 911 or go to the nearest Emergency Room. * Chest pain * Problems breathing * Seizure activity * Partial or complete paralysis of a body part, slurred speech, weakness or drooping of the face, or a sudden inability to walk or hold your balance Allergies/Adverse Reactions: Allergies No Known Allergies Allergy (Verified 01/09/18 01:11) Medications to take at Discharge Vits [Prenatabs FA] 1 tablet PO DAILY 12/29/17 Please Follow Up With: Juan M Turner MD - [phone] When: Call to make an appointment with your doctor in 6 weeks. Test Results: Test results from this visit will be discussed in further detail at your follow- up appointment, if applicable. <Damon Izquierdo - Last Filed: 06/02/20 07:09> Additional Instructions: If you experience any of the following, contact your healthcare provider. * Bleeding that soaks a pad every hour for 2 hours * Fever 100.4 or higher * Unrelieved incision or abdominal pain * Swelling, redness, discharge or bleeding from your incision or episiotomy site * Your incision begins to separate * Problems urinating (including inability to urinate or burning while urinating). * Visual changes * Severe headache * Flu-like symptoms * Pain or redness in one of both of your breasts * Pain, warmth, tenderness or swelling in your legs, especially the calf area * Frequent nausea and vomiting * Symptoms of depression or anxiety If you experience any of the following, call 911 or go to the nearest Emergency Room. * Chest pain * Problems breathing * Seizure activity * Partial or complete paralysis of a body part, slurred speech, weakness or drooping of the face, or a sudden inability to walk or hold your balance Test Results: Test results from this visit will be discussed in further detail at your follow- up appointment, if applicable.
--- NOTE | 2020-06-01 16:51 | PCM.DCVAG ---
<Juan M Turner - Last Filed: 06/01/20 16:51> Discharge Diet: No Restrictions Discharge Activity: May Shower, May Take a Tub Bath May resume sexual activity in: 4-6 weeks Additional Activity Instructions:: Nothing in the vagina for 4-6 weeks. You may return to work/school in 6 weeks. Call your doctor if you observe: Inability to urinate, Inability to have a bowel movement, Using more than one pad per hour Additional Instructions: If you experience any of the following, contact your healthcare provider. Bleeding that soaks a pad every hour for 2 hours Fever 100.4 or higher Unrelieved incision or abdominal pain Swelling, redness, discharge or bleeding from your incision or episiotomy site Your incision begins to separate Problems urinating (including inability to urinate or burning while urinating). Visual changes Severe headache Flu-like symptoms Pain or redness in one of both of your breasts Pain, warmth, tenderness or swelling in your legs, especially the calf area Frequent nausea and vomiting Symptoms of depression or anxiety If you experience any of the following, call 911 or go to the nearest Emergency Room. Chest pain Problems breathing Seizure activity Partial or complete paralysis of a body part, slurred speech, weakness or drooping of the face, or a sudden inability to walk or hold your balance Allergies/Adverse Reactions: Allergies No Known Allergies Allergy (Verified 01/09/18 01:11) Medications to take at Discharge Vits [Prenatabs FA] 1 tablet PO DAILY 12/29/17 Please Follow Up With: Juan M Turner MD - [phone] When: Call to make an appointment with your doctor in 6 weeks. Test Results: Test results from this visit will be discussed in further detail at your follow-up appointment, if applicable. <Damon Izquierdo - Last Filed: 06/02/20 07:09> Additional Instructions: If you experience any of the following, contact your healthcare provider. Bleeding that soaks a pad every hour for 2 hours Fever 100.4 or higher Unrelieved incision or abdominal pain Swelling, redness, discharge or bleeding from your incision or episiotomy site Your incision begins to separate Problems urinating (including inability to urinate or burning while urinating). Visual changes Severe headache Flu-like symptoms Pain or redness in one of both of your breasts Pain, warmth, tenderness or swelling in your legs, especially the calf area Frequent nausea and vomiting Symptoms of depression or anxiety If you experience any of the following, call 911 or go to the nearest Emergency Room. Chest pain Problems breathing Seizure activity Partial or complete paralysis of a body part, slurred speech, weakness or drooping of the face, or a sudden inability to walk or hold your balance Test Results: Test results from this visit will be discussed in further detail at your follow-up appointment, if applicable.
[2020-06-01] MEDS: Methylergonovine 0.2 MG/ML Ampul IM (17:20)
[2020-06-01] MEDS: Acetaminophen 500 MG Tablet 1000 MG PO (23:09)
[2020-06-02] VITALS (9 sets, daily range): BP systolic 118–141; BP diastolic 66–83; PULSE 80–97; RESP 16–18; TEMP 36.4–36.8; O2SAT 98
[2020-06-02] MEDS: Ibuprofen 600 MG Tablet PO ×3 (04:11→17:48)
--- NOTE | 2020-06-02 07:08 | PCM.PN.OB ---
Subjective: Objective: No overnight complaints. Pain well controlled. - Physical Exam Vitals/I&O's: Vital Signs Temp Pulse Resp BP Pulse Ox 98.2 F 97 16 130/80 H 99 06/02/20 04:12 06/02/20 04:12 06/02/20 04:12 06/02/20 04:12 06/01/20 15:03 Weight: 234 lb 12.8 oz Body Mass Index (BMI) 36.8 Intake and Output for Last 24 Hours 05/31/20 06/01/20 06/02/20 23:59 23:59 23:59 Intake Total 2476.54 / 2476.54 Output Total 1600 / 1600 Balance 876.54 / 876.54 General: Alert, Oriented x3, Cooperative, No apparent distress HEENT: Atraumatic, Normocephalic Oral: Moist Mucosa Neck: Supple Abdomen: Soft, Non Tender, Gravid - Fundus firm at umbilicus Psych/Mental Status: Normal Affect, Appropriate, Alert and oriented to time, place, person, mood and affect Laboratory Results 06/01/20 07:30: WBC 9.9, RBC 4.29, Hgb 10.9 L, Hct 34.0 L, MCV 79.3 L, MCH 25.4 L, MCHC 32.1, RDW Std Deviation 47.3 H, RDW Coeff of [place] 16.7 H, Plt Count 247, MPV 10.9, Immature Gran % (Auto) 0.800, Neut % (Auto) 62.9, Lymph % (Auto) 28.0, [place] % (Auto) 6.3, Eos % (Auto) 1.7, Baso % (Auto) 0.3, Absolute Neuts (auto) 6.2, Absolute Lymphs (auto) 2.77, Nucleated RBC % 0 06/01/20 07:30: Blood Type O NEGATIVE, Antibody Screen NEGATIVE 06/01/20 17:40: Screen NEGATIVE, Baby's Blood Type O POSITIVE, Baby's KAMRAN NEGATIVE Current Medications Acetaminophen (Tylenol) 1,000 mg PO Q8H PRN PRN PRN Reason: Pain Score 1-3/10 Last Admin: 06/01/20 23:09 Dose: 1,000 mg Documented by: Bisacodyl (Dulcolax) 10 mg RECTAL UD PRN PRN Reason: If no BM Dibucaine (Dibucaine) 1 applic TOPICAL TID PRN PRN; Protocol PRN Reason: Discomfort Hydrocortisone (Hytone) 1 applic TOPICAL TID PRN PRN; Protocol PRN Reason: Discomfort Ibuprofen (Motrin) 600 mg PO Q6H PRN PRN PRN Reason: Pain Score 1-3/10 Last Admin: 06/02/20 04:11 Dose: 600 mg Documented by: Measles/Mumps/Rubella Vaccine Live (M-M-R Ii) 0.5 ml SC .ONCE ONE Stop: 06/02/20 10:01 Last Admin: 06/01/20 18:00 Dose: Not Given Documented by: Methylergonovine Maleate (Methergine) 0.2 mg IM X1 PRN PRN Reason: Excess bleeding/uterine atony Last Admin: 06/01/20 17:20 Dose: 0.2 mg Documented by: Ondansetron HCl (Zofran) 4 mg IV Q4H PRN PRN PRN Reason: Nausea Oxycodone HCl (Oxyir) 5 - 10 mg PO Q4H PRN PRN PRN Reason: Pain Score 4-10/10 Senna/Docusate Sodium (Senokot-S, Keiko-Colace) 1 - 2 tablet PO DAILY PRN PRN PRN Reason: Constipation Simethicone (Mylicon) 80 mg PO PCHS PRN PRN Reason: Indigestion/Stomach pain Sodium Chloride () 5 - 15 ml IV UD PRN PRN Reason: SALINE FLUSH Zolpidem Tartrate (Ambien (Generic)) 5 mg PO QHS PRN PRN PRN Reason: Insomnia Medical Necessity - Tobacco Use Smoking Status: Never smoker Assessment/Plan day 1. Bottlefeeding. Pain well controlled. Okay to DC home today
== END 2020-06-02 18:05 | disposition home or self-care (01) | DRG 807 ==
PROVIDERS: Admitting Provider Obstetrics & Gynecology; Referring Provider Obstetrics & Gynecology; Visit Provider Obstetrics & Gynecology
DX: O75.9 Complication of labor and delivery, unspecified (principal); Z37.0 Single live birth; Z3A.40 40 weeks gestation of pregnancy; Z82.79 Family history of other congenital malformations, deformations and chromosomal abnormalities
CPT/HCPCS: 59025; 59050; 85025; 85461; 86850; 86900; 86901; 90384; 99218; J7120; G0378; J2790